=== PATIENT | female | born 1945 | race Caucasian/White ===

== ENCOUNTER 2017-05-22 16:00 | Emergency (ER) | payer MEDICARE, OTHER ==
[2017-05-22] MEDS ORDERED: Sodium Chloride 0.9% 10 ML Syringe FLUSH PRN (16:17)
--- NOTE | 2017-05-22 16:25 | EDM.PDOC ---
ED HPI GENERAL MEDICAL PROBLEM - General Chief Complaint: Cardiovascular Problem Stated Complaint: CHEST PAIN Time Seen by Provider: 05/22/17 16:18 Source of Information: Reports: Patient, RN History Limitations: Reports: No Limitations - History of Present Illness INITIAL COMMENTS - FREE TEXT/NARRATIVE: 72 yr female presents with headache around 230 today and then chest pain. Rates her pain a "2" today. States not really a headache and not really chest pain, but just doesn't feel right. States some tingling to right arm and dry mouth. States she has been walking today and no problems. No medications. She is alert and talkative. Her grandson and daughter in law are with her. She has had 2 heart catheters and said they have been normal. She states 5 pregnancies. States she has been healthy and no health concerns. Epigastric Pain Score (Numeric/FACES): 2 - Related Data Allergies Allergy/AdvReac Type Severity Reaction Status Date / Time diazepam [From Valium] Allergy Hyperactivi Verified 05/22/17 16:16 ty diphenhydramine HCl Allergy Hives Verified 05/22/17 16:16 [From Benadryl] Home Meds: Home Meds NK [No Known Home Meds] 06/04/13 [History] Social & Family History - Tobacco Use Smoking Status *Q: Never Smoker Second Hand Smoke Exposure: No - Alcohol Use Days Per Week of Alcohol Use: 0 - Recreational Drug Use Recreational Drug Use: No ED ROS GENERAL - Review of Systems Review Of Systems: See Below Constitutional: Reports: No Symptoms HEENT: Reports: Ear Pain, Glasses Respiratory: Reports: No Symptoms Endocrine: Reports: No Symptoms GI/Abdominal: Reports: No Symptoms Musculoskeletal: Reports: Joint Pain (right hip borken in past, no pinning done) , Other (tingling to right arm) Skin: Reports: No Symptoms Neurological: Reports: Confusion, Headache Psychiatric: Reports: No Symptoms Hematologic/Lymphatic: Reports: No Symptoms Immunologic: Reports: No Symptoms ED EXAM, GENERAL - Physical Exam Exam: See Below Exam Limited By: No Limitations General Appearance: Alert, No Apparent Distress Ears: Hearing Grossly Normal, Other (cerumen noted, bilaterally to ear canals) Ear Exam: Left Ear: Auricle Normal Throat/Mouth: Normal Voice, No Airway Compromise Head: Atraumatic, Normocephalic Respiratory/Chest: No Respiratory Distress Cardiovascular: Regular Rate, Rhythm, No Edema GI/Abdominal: Soft, Non-Tender Extremities: Non-Tender, No Pedal Edema Neurological: Alert, Oriented, Normal Cognition Psychiatric: Normal Affect, Normal Mood Skin Exam: Warm, Dry, Normal Color Course - Vital Signs Last Recorded V/S: Last Vital Signs Temp 97.6 F 05/22/17 16:00 Pulse 76 05/22/17 17:23 Resp 16 05/22/17 17:23 BP 158/72 H 05/22/17 17:23 Pulse Ox 99 05/22/17 17:23 - Orders/Labs/Meds Orders: Active Orders 24 hr Category Date Time Status Cardiac Monitoring [RC] .As Directed Care 05/22/17 16:18 Active EKG Documentation Completion [RC] ASDIRECTED Care 05/22/17 16:20 Active Head wo Cont [CT] Stat Exams 05/22/17 17:11 Ordered Sodium Chloride 0.9% [Saline Flush] Med 05/22/17 16:17 Active 10 ml FLUSH ASDIRECTED PRN Saline Lock Insert [OM.PC] Stat Oth 05/22/17 16:17 Ordered Medication Orders Sodium Chloride (Saline Flush) 10 ml FLUSH ASDIRECTED PRN PRN Reason: Keep Vein Open Labs: Laboratory Tests 05/22/17 05/22/17 05/22/17 Range/Units 16:17 16:17 16:17 WBC 5.7 (4.0-11.0) K/uL RBC 3.99 (3.80-5.80) M/uL Hgb 12.1 (11.5-16.5) g/dL Hct 35.3 L (37.0-47.0) % MCV 89 (76-96) fL MCH 30.3 (27.0-32.0) pg MCHC 34.3 (31.0-35.0) g/dL RDW 13.0 (11.0-16.0) % Plt Count 185 (150-500) K/uL MPV 9.8 (6.0-10.0) fL Neut % (Auto) 66.1 (45.0-70.0) % Lymph % (Auto) 24.4 (20.0-40.0) % [place] % (Auto) 8.0 (3.0-10.0) % Eos % (Auto) 1.0 (1.0-5.0) % Baso % (Auto) 0.5 (0.0-0.5) % Neut # (Auto) 3.79 (2.00-7.50) K/uL Lymph # (Auto) 1.40 L (1.50-4.00) K/uL [place] # (Auto) 0.46 (0.20-0.80) K/uL Eos # (Auto) 0.06 (0.04-0.40) K/uL Baso # (Auto) 0.03 (0.02-0.10) K/uL D-Dimer, Quantitative 193 (0-400) ng/mL Sodium 143 (136-145) mmol/L Potassium 4.0 (3.5-5.1) mmol/L Chloride 105 (98-107) mmol/L Carbon Dioxide 24.8 (21.0-32.0) mmol/L Anion Gap 17.2 H (5.0-15.0) mmol/L BUN 17 (8-26) mg/dL Creatinine 0.92 (0.55-1.02) mg/dL Est Cr Clr Drug Dosing TNP Estimated GFR (MDRD) 60 (>60) MLS/MIN BUN/Creatinine Ratio 18.5 (6-25) Glucose 109 H (74-100) mg/dL Calcium 8.8 (8.5-10.1) mg/dL Total Bilirubin 0.2 D (0.0-1.0) mg/dL AST 17 (15-37) U/L ALT 17 (12-78) U/L Alkaline Phosphatase 142 H (46-116) U/L Troponin I < 0.017 (0.000-0.060) ng/mL Total Protein 7.2 (6.4-8.2) g/dL Albumin 3.7 (3.4-5.0) g/dL Globulin 3.5 (2.2-4.2) g/dL Albumin/Globulin Ratio 1.1 (0.8-2.0) Meds: Medications Generic Name Dose Route Start Last Admin Trade Name Freq PRN Reason Stop Dose Admin Sodium Chloride 10 ml 05/22/17 16:17 Saline Flush FLUSH ASDIRECTED PRN Keep Vein Open - Re-Assessments/Exams Free Text/Narrative Re-Assessment/Exam: 05/22/17 17:14 Lab are completed. D-dimer and troponins are negative. Pt up to bathroom to void and headache is worse and doesn't feel right. 05/22/17 17:39 CT of head completed. No acute changes. Pt having some head pain and some nausea after the CT. Recommend pt to use tylenol or Ibuprofen for relief of pain at home. Rest and fluids to prevent dehydration. Consult with Dr Baptiste. Discussed symptoms with pt and recommend return to ER if symptoms worse. Probable viral cause of acute head pain and sensation to head. Recommend follow-up in clinic on Thursday. Pt states she wants to go. 05/22/17 17:46 Discharge to home in wheelchair. Departure - Departure Time of Disposition: 17:44 Disposition: Home, Self-Care 01 Condition: Fair Clinical Impression: Headache Instructions: General Headache Without Cause Referrals: Joey Maya MD [Primary Care Provider] - Forms: ED Department Discharge - My Orders Last 24 Hours: My Active Orders 05/22/17 16:17 Sodium Chloride 0.9% [Saline Flush] 10 ml FLUSH ASDIRECTED PRN Saline Lock Insert [OM.PC] Stat 05/22/17 16:18 Cardiac Monitoring [RC] .As Directed 05/22/17 16:20 EKG Documentation Completion [RC] ASDIRECTED 05/22/17 17:11 Head wo Cont [CT] Stat - Assessment/Plan Last 24 Hours: My Active Orders 05/22/17 16:17 Sodium Chloride 0.9% [Saline Flush] 10 ml FLUSH ASDIRECTED PRN Saline Lock Insert [OM.PC] Stat 05/22/17 16:18 Cardiac Monitoring [RC] .As Directed 05/22/17 16:20 EKG Documentation Completion [RC] ASDIRECTED 05/22/17 17:11 Head wo Cont [CT] Stat
--- NOTE | 2017-05-25 03:36 | CT ---
UNENHANCED BRAIN CT, 05/22/17 Multislice acquisition through the brain without IV contrast was performed. No priors. There is mild diffuse cerebral atrophy. There are periventricular lucencies bilaterally consistent with small vessel ischemic change. There are small lucencies in the basal ganglia consistent with old lacunar infarcts. No masses or mass effect. No intracranial hemorrhage. No evidence of acute or subacute fractures. IMPRESSION: No acute intracranial abnormalities. [id number] [facility]
== END 2017-05-22 17:45 | disposition home or self-care (01) ==
LOC: LB.ED 16:00
DX: R51 Headache (principal); Z88.8 Allergy status to other drugs, medicaments and biological substances
CPT/HCPCS: 36415; 70450; 80053; 84484; 85025; 85379; 93005; 99284; 99285-25